=== PATIENT | male | born 1960 | race Caucasian/White ===

== ENCOUNTER 2017-05-12 13:21 | Inpatient (IN) | payer OTHER ==
[~2017-05-12] VITALS: Ht 185.4 cm; Wt 140.2 kg
[~2017-05-12 13:21] MED LIST: AMLODIPINE BES2.5 MG; ASPIRIN81 M2 PO; AVODART0.5 MG; CEFUROXIME250 MG; CIALIS20 MG; CINNAMON500 MG PO; FISH OIL 1,2001 EAC4 PO; FORTAMET500 MG; IBUPROFEN600 MG PO; LISINOP/HCTZ; LISINOPRIL-HCTZ 20-1; NORVASC10 MG PO; NORVASC2.5 MG PO; PRAVASTATIN SOD20 MG; PRAVASTATIN SOD20 MG PO; ZESTRIL,PRINIV2.5 MG PO
[2017-05-12 14:03] LABS: HEMATOCRIT 35.3 % (38.0-50.0); MCHC 32.9 G/DL (30.0-36.0); MCV 82.1 FL (86-99); MEAN PLAT.VOLUME 9.6 uM^3 (9.0-12.4); PLATELET COUNT 425 K/uL (156-360); RBC DIS.WIDTH-CV 13.4 % (11.8-14.6); RBC DIS.WIDTH-SD 40.5 % (39-53); WHITE BLOOD COUNT 17.1 K/uL (4.1-10.2)
[2017-05-12 14:12] LABS: CHLORIDE 103 mEq/L (99-109); SODIUM 135 mEq/L (136-147)
[2017-05-12 14:13] LABS: GLUCOSE 115 mg/dL (70-99)
[2017-05-12 14:15] LABS: ANION GAP 11 MEQ/L (2-14); POTASSIUM 3.7 mEq/L (3.7-5.4)
[2017-05-12 14:17] LABS: GFR ESTIMATE (CALCULATED) > 59 mL/min/
[2017-05-12 14:18] LABS: UREA NITROGEN (BUN) 13 mg/dL (9-23)
[2017-05-12 14:24] LABS: TROP-I INTERPRETATION NEGATIVE; TROPONIN-I 0.11 ng/mL (0.0-0.30)
[2017-05-12] MEDS ORDERED: LO-DOSE ASPIRIN81 M2 PO (16:49)
[2017-05-12] MEDS ORDERED: K-DUR20 MEQ PO (16:50)
[2017-05-12] MEDS ORDERED: DOXYCYCLINE HY100 MG PO (16:50)
[2017-05-12] MEDS ORDERED: TAMSULOSIN HCL0.4 MG PO (16:50)
[2017-05-12] MEDS ORDERED: CIALIS20 MG PO (16:51)
[2017-05-12] MEDS ORDERED: DOXYCYCLINE HY100 M3 PO (16:51)
[2017-05-12 17:12] LABS: ADD MIUA? YES; BILIRUBIN NEGATIVE; BLOOD NEGATIVE; COLOR YELLOW ((YELLOW)); GLUCOSE (STRIP) NEGATIVE; KETONES NEGATIVE; LEUKOCYTES NEGATIVE; NITRITE NEGATIVE; PROTEIN (STRIP) 30; SPECIFIC GRAVITY 1.015 (1.000-1.030); UROBILINOGEN 0.2 MG/DL (0.2-1.0)
[2017-05-12 17:22] LABS: BACTERIA RARE /HPF; CALCIUM OXALATE CRYSTALS 1+ /HPF; EPITHELIAL CELLS RARE /HPF; HYALINE CASTS 0-5 /LPF; MUCUS 2+ /LPF; RED BLOOD CELLS 0-5 /HPF (0-5); UNCLASSIFIED CASTS 0-5 /LPF; WHITE BLOOD CELLS 0-5 /HPF (0-5)
[2017-05-12 20:33] VITALS: BP 124/80
[2017-05-12 23:00] VITALS: BP 116/67
[2017-05-13 02:30] VITALS: BP 105/55
[2017-05-13 05:39] LABS: EOSINOPHIL (%) 1.6 % (0-5); EOSINOPHIL COUNT 0.2 K/uL (0-0.3); HEMATOCRIT 31.7 % (38.0-50.0); IMMATURE GRANULOCYTE (%) 0.6 % (0.0-0.7); IMMATURE GRANULOCYTE COUNT 0.1 K/uL; INSTRUMENT ABS NEUTROPHIL CT 11.7 K/uL; LYMPHOCYTE COUNT 1.8 K/uL (1.0-2.8); MCH 27.7 PG (29.0-34.0); MCHC 32.5 G/DL (30.0-36.0); MCV 85.2 FL (86-99); MONOCYTE (%) 3.5 % (3-12); MONOCYTE COUNT 0.5 K/uL (0-0.8); NEUTROPHIL (%) 81.6 % (45-76); NEUTROPHIL COUNT 11.7 K/uL (1.8-6.4); PLATELET COUNT 349 K/uL (156-360); RBC DIS.WIDTH-CV 13.6 % (11.8-14.6); RBC DIS.WIDTH-SD 42.5 % (39-53); RED BLOOD COUNT 3.72 M/uL (4.00-5.50); WHITE BLOOD COUNT 14.3 K/uL (4.1-10.2)
[2017-05-13 06:01] LABS: ANION GAP 9 MEQ/L (2-14); CHLORIDE 104 MEQ/L (99-109); GFR ESTIMATE (CALCULATED) > 59 mL/min/; GLUCOSE 112 mg/dL (70-99); POTASSIUM 4.2 MEQ/L (3.7-5.4); SAMPLE HEMOLYSIS CHECK 0; SAMPLE ICTERIC CHECK 0; SAMPLE LIPEMIA CHECK 0; SODIUM 138 MEQ/L (136-147); UREA NITROGEN (BUN) 16 mg/dL (9-23)
[2017-05-13 07:49] VITALS: BP 102/66
[2017-05-13 12:12] VITALS: BP 116/74
[2017-05-13 15:57] VITALS: BP 122/78
[2017-05-13 20:00] VITALS: BP 116/64
[2017-05-13 23:42] VITALS: BP 123/77
[2017-05-14 04:00] VITALS: BP 125/61
[2017-05-14 06:02] LABS: EOSINOPHIL (%) 5.3 % (0-5); EOSINOPHIL COUNT 0.3 K/uL (0-0.3); HEMATOCRIT 31.5 % (38.0-50.0); IMMATURE GRANULOCYTE (%) 0.8 % (0.0-0.7); IMMATURE GRANULOCYTE COUNT 0.1 K/uL; INSTRUMENT ABS NEUTROPHIL CT 3.7 K/uL; LYMPHOCYTE COUNT 1.9 K/uL (1.0-2.8); MCH 27.7 PG (29.0-34.0); MCHC 32.7 G/DL (30.0-36.0); MCV 84.7 FL (86-99); MEAN PLAT.VOLUME 10.1 uM^3 (9.0-12.4); MONOCYTE (%) 6.5 % (3-12); MONOCYTE COUNT 0.4 K/uL (0-0.8); NEUTROPHIL (%) 56.9 % (45-76); NEUTROPHIL COUNT 3.7 K/uL (1.8-6.4); PLATELET COUNT 342 K/uL (156-360); RBC DIS.WIDTH-CV 13.7 % (11.8-14.6); RBC DIS.WIDTH-SD 42.5 % (39-53); RED BLOOD COUNT 3.72 M/uL (4.00-5.50); WHITE BLOOD COUNT 6.4 K/uL (4.1-10.2)
[2017-05-14 06:20] LABS: ALKALINE PHOSPHATASE 71 IU/L (3-129); ANION GAP 7 MEQ/L (2-14); CHLORIDE 106 MEQ/L (99-109); DIRECT BILIRUBIN 0.1 mg/dL (0.0-0.3); GFR ESTIMATE (CALCULATED) > 59 mL/min/; GLUCOSE 103 mg/dL (70-99); POTASSIUM 4.4 MEQ/L (3.7-5.4); SAMPLE HEMOLYSIS CHECK 0; SAMPLE ICTERIC CHECK 0; SAMPLE LIPEMIA CHECK 0; SODIUM 140 MEQ/L (136-147); UREA NITROGEN (BUN) 15 mg/dL (9-23)
[2017-05-14 06:21] LABS: TOTAL BILIRUBIN 0.3 MG/DL (0.0-1.0)
[2017-05-14 07:36] VITALS: BP 115/70
[2017-05-14] MEDS ORDERED: ANTI-ITCH56 GM TP (10:28)
[2017-05-14] MEDS ORDERED: LORATADINE10 M2 PO (10:28)
[2017-05-14] MEDS ORDERED: DOXYCYCLINE HY100 M3 PO (10:28)
== END 2017-05-14 11:00 | disposition home or self-care (01) | DRG 868 ==
LOC: EME 13:21 → EDOF 17:34 → 4EAST 17:34
PROVIDERS: Nurse Practitioner Family; Physician Assistant
DX: A69.20 Lyme disease, unspecified (principal); D64.9 Anemia, unspecified; I10 Essential (primary) hypertension; E66.9 Obesity, unspecified; Z68.41 Body mass index [BMI] 40.0-44.9, adult; Z79.82 Long term (current) use of aspirin
CPT/HCPCS: 36415; 71020; 80048; 80053; 80069; 80074; 80076; 81003; 83605; 84484; 85025; 85027; 85651; 86617 90; 86664; 86665; 86666 90; 87040; 87086; 93005; 99281; 99285; J0696; J1650; J7030; J7050